=== PATIENT | male | born 1980 | race Caucasian/White ===

== ENCOUNTER 2016-10-05 11:43 | Emergency (ER) | payer OTHER ==
[~2016-10-05] VITALS: Ht 175.3 cm; Wt 65.9 kg
[~2016-10-05 11:43] MED LIST: AUGMENTIN875 MG PO; MOTRIN600 MG PO; NOHOMEMEDS
[2016-10-05 12:05] VITALS: BP 141/100
[2016-10-05] MEDS ORDERED: MOTRIN800 MG PO (13:20)
== END 2016-10-05 13:32 | disposition home or self-care (01) ==
LOC: EME 11:43
DX: S93.601A Unspecified sprain of right foot, initial encounter (principal); X50.1XXA Overexertion from prolonged static or awkward postures, initial encounter; Y92.812 Truck as the place of occurrence of the external cause; F17.200 Nicotine dependence, unspecified, uncomplicated
CPT/HCPCS: 73630; 99281; 99284

== ENCOUNTER 2016-10-11 17:47 | Emergency (ER) | payer OTHER ==
[~2016-10-11] VITALS: Ht 175.3 cm; Wt 64.8 kg
[~2016-10-11 17:47] MED LIST changes: +MOTRIN800 MG PO
[2016-10-11 19:12] VITALS: BP 105/58
== END 2016-10-11 19:12 | disposition home or self-care (01) ==
LOC: EME 17:47
DX: F10.129 Alcohol abuse with intoxication, unspecified (principal); W01.0XXA Fall on same level from slipping, tripping and stumbling without subsequent striking against object, initial encounter; F17.200 Nicotine dependence, unspecified, uncomplicated
CPT/HCPCS: 99281; 99284

== ENCOUNTER 2017-02-19 22:40 | Emergency (ER) | payer OTHER ==
[~2017-02-19] VITALS: Ht 170.2 cm; Wt 58.8 kg
[2017-02-19 23:05] VITALS: BP 143/92
== END 2017-02-19 23:06 ==
LOC: EME → EDBD 22:40 → EME 22:40
DX: F32.9 Major depressive disorder, single episode, unspecified (principal); F10.10 Alcohol abuse, uncomplicated; Z02.89 Encounter for other administrative examinations
CPT/HCPCS: 99281; 99283

== ENCOUNTER 2017-03-31 19:11 | Emergency (ER) | payer OTHER ==
[~2017-03-31] VITALS: Ht 175.3 cm; Wt 67.0 kg
[2017-03-31 19:54] LABS: HEMATOCRIT 42.6 % (38.0-50.0); MCH 31.6 PG (29.0-34.0); MCHC 33.3 G/DL (30.0-36.0); MCV 94.7 FL (86-99); PLATELET COUNT 204 K/uL (156-360); RBC DIS.WIDTH-CV 12.5 % (11.8-14.6); WHITE BLOOD COUNT 9.7 K/uL (4.1-10.2)
[2017-03-31 19:57] VITALS: BP 106/68
[2017-03-31 20:03] LABS: CHLORIDE 109 mEq/L (99-109); POTASSIUM 3.6 mEq/L (3.7-5.4); SODIUM 141 mEq/L (136-147)
[2017-03-31 20:05] LABS: GLUCOSE 96 mg/dL (70-99)
[2017-03-31 20:06] LABS: ANION GAP 10 MEQ/L (2-14)
[2017-03-31 20:08] LABS: D-DIMER ELISA < 150.00 ng/mLDDU (<230)
[2017-03-31 20:09] LABS: GFR ESTIMATE (CALCULATED) > 59 mL/min/; UREA NITROGEN (BUN) 10 mg/dL (9-23)
[2017-03-31 20:14] LABS: TROP-I INTERPRETATION NEGATIVE; TROPONIN-I < 0.01 ng/mL (0.0-0.30)
[2017-03-31] MEDS ORDERED: NAPROSYN500 MG PO (21:35)
== END 2017-03-31 22:35 | disposition home or self-care (01) ==
LOC: EME 19:11
PROVIDERS: Physician Assistant Medical
DX: M94.0 Chondrocostal junction syndrome [Tietze] (principal); F17.200 Nicotine dependence, unspecified, uncomplicated; Z88.5 Allergy status to narcotic agent
CPT/HCPCS: 71020; 80048; 84484; 85027; 85379; 93005; 99281; 99283; J1885